=== PATIENT | female | born 1980 | race Caucasian/White ===

== ENCOUNTER 2019-01-03 10:01 | Inpatient (IN) | payer OTHER ==
[~2019-01-03] VITALS: Ht 147.3 cm; Wt 81.2 kg
[2019-01-03] MEDS ORDERED: IV D5/0.45 NACL 1,000 ML IV PRN (11:08)
--- NOTE | 2019-01-03 11:15 | NUR ---
MS DIVISION SALES MANAGER NOTES RECEIVED PT VIA [facility] WITH 2EMTS. PT DIRECT ADMIT FROM [facility]. PT IS A/O X4, TAGALOG SPEAKING AND CAN CONVERSE WITH [place] [employer]. PT AMBULATORY WITH STEADY GAIT, ABLE TO TRANSFER HERSELF FROM [facility] TO BED. PT ABLE TO PROVIDE MEDICAL HISTORY, NO MEDICATIONS CURRENTLY TAKING AT HOME. PT TOLERATING RA, WITH NO ACUTE RESPIRATORY DISTRESS NOTED. PT DENIES ANY PAIN OR DISCOMFORT AT THE TIME OF ADMISSION. PIV TO LFA G18, FLUSHED WITH NS, INTACT AND OPERATIONAL. ASSESSED SKIN, AND INTACT. PT KEPT COMFORTABLE. CALL LIGHT KEPT WITHIN REACH. MD/ MADE AWARE AND PLACED ADMISSION ORDERS. BED IN LOWEST, LOCKED POSITION WITH SRX3. WILL CONTINUE PLAN OF CARE.
[2019-01-03] MEDS ORDERED: ACETAMINOPHEN 325 MG TABLET PO PRN (11:30)
[2019-01-03] MEDS ORDERED: HYDROCODONE/APAP 5/325MG 1 EACH TABLET PO PRN (11:30)
[2019-01-03] MEDS ORDERED: ZOLPIDEM TARTRATE 5 MG TABLET PO PRN (11:30)
[2019-01-03] MEDS ORDERED: MAG HYDROX/AL HYDROX/SIMETH 30 ML UDC PO PRN (11:30)
[2019-01-03] MEDS ORDERED: MAGNESIUM HYDROXIDE 30 ML UDC PO PRN (11:30)
[2019-01-03] MEDS ORDERED: ONDANSETRON HCL/PF 4 MG/2 ML VIAL IVP PRN (11:30)
[2019-01-03] MEDS ORDERED: ZOSYN IVPB 3.375 G in IV D5W 50ml IV ONE (12:00)
[2019-01-03 12:08] LABS: ALBUMIN 3.1 g/dL (3.4-5.0); BILIRUBIN,TOTAL 0.6 mg/dL (0.2-1.0); MAGNESIUM 2.1 mg/dL (1.8-2.4); PHOSPHORUS 3.5 mg/dL (2.5-4.9); POTASSIUM 3.8 mmol/L (3.5-5.1); TOTAL PROTEIN, SERUM 7.2 g/dL (6.4-8.2)
[2019-01-03 12:10] LABS: BASOPHILS % (AUTO) 0.2 % (0.0-2.0); EOSINOPHILS % (AUTO) 0.2 % (0.0-6.0); HEMATOCRIT 41 % (33-45); HEMOGLOBIN 13.4 g/dL (11.5-14.8); LYMPHOCYTES # (AUTO) 1.1 /CMM (0.8-4.8); LYMPHOCYTES % (AUTO) 8.3 % (20.0-44.0); MEAN CORPUSCULAR HGB CONC 32 g/dl (31.0-36.0); MEAN CORPUSCULAR VOLUME 83 fL (82-100); MONOCYTES # (AUTO) 0.5 /CMM (0.1-1.30); MONOCYTES % (AUTO) 3.8 % (2.0-12.0); NEUTROPHILS # (AUTO) 12.1 /CMM (1.8-8.9); NEUTROPHILS % (AUTO) 87.5 % (43.0-81.0); PLATELET COUNT (AUTO) 371 /CMM (150-450); RED BLOOD CELL COUNT(AUTO) 4.95 MIL/uL (4.0-5.2); WHITE BLOOD COUNT (AUTO) 13.8 K/uL (4.3-11.0)
[2019-01-03 12:19] LABS: THYROID STIMULATING HORMONE 0.805 uIU/mL (0.358-3.74)
--- NOTE | 2019-01-03 14:30 | NUR ---
MS RN NOTES PT HAD US RESULTED NEGATIVE. MD/SA MADE AWARE, NO NEW ORDERS NOTED AT THIS TIME.
[2019-01-03 16:00] VITALS: BP 123/61
--- NOTE | 2019-01-03 17:00 | NUR ---
MS RN NOTES PT LEFT THE UNIT FOR NM HIDA SCAN VIA W/C.
[2019-01-03] MEDS: PIPERACILLIN /TAZOBACTAM 3.375 G in IV D5W 50 ML IV SCH ×2 (18:12→23:53)
--- NOTE | 2019-01-03 18:39 | NUR ---
MS RN CLOSING NOTES PT IS A/O X4, TAGALOG SPEAKING AND CAN CONVERSE WITH [place] [employer]. PT AMBULATORY WITH STEADY GAIT.PT TOLERATING RA, WITH NO ACUTE RESPIRATORY DISTRESS NOTED. PT DENIES ANY PAIN OR DISCOMFORT AT THE THIS TIME. IVF D51/2NS AT 75 ML/HR TO LFA G18, INTACT AND FLUID INFUSING WELL. ALL NEEDS AND CARE ATTENDED. PT KEPT COMFORTABLE. CALL LIGHT KEPT WITHIN REACH. BED IN LOWEST, LOCKED POSITION WITH SRX3. WILL ENDORSE TO INCOMING NIGHT NURSE FOR PENDING NM HIDA SCAN RESULT AND QUOC.
[2019-01-03 20:00] VITALS: BP 115/63
[2019-01-04] MEDS: PIPERACILLIN /TAZOBACTAM 3.375 G in IV D5W 50 ML IV SCH (05:06)
[2019-01-04 07:19] LABS: CALCIUM, SERUM 7.7 mg/dL (8.5-10.1); CREATININE 0.9 mg/dL (0.6-1.3); MAGNESIUM 2.3 mg/dL (1.8-2.4); PHOSPHORUS 2.7 mg/dL (2.5-4.9); POTASSIUM 3.4 mmol/L (3.5-5.1)
[2019-01-04 07:26] LABS: BASOPHILS % (AUTO) 0.4 % (0.0-2.0); EOSINOPHILS % (AUTO) 3.4 % (0.0-6.0); HEMATOCRIT 38 % (33-45); HEMOGLOBIN 12.4 g/dL (11.5-14.8); LYMPHOCYTES # (AUTO) 2.6 /CMM (0.8-4.8); LYMPHOCYTES % (AUTO) 31.2 % (20.0-44.0); MEAN CORPUSCULAR HGB CONC 33 g/dl (31.0-36.0); MEAN CORPUSCULAR VOLUME 83 fL (82-100); MONOCYTES # (AUTO) 0.7 /CMM (0.1-1.30); NEUTROPHILS # (AUTO) 4.6 /CMM (1.8-8.9); PLATELET COUNT (AUTO) 327 /CMM (150-450); WHITE BLOOD COUNT (AUTO) 8.2 K/uL (4.3-11.0)
[2019-01-04] MEDS ORDERED: PANTOPRAZOLE 40 MG TABLET.DR PO SCH (07:30)
--- NOTE | 2019-01-04 07:30 | NUR ---
RN MS NOTE RECEIVED REPORT AT BEDSIDE. PATIENT SLEEPING COMFORTABLY. NO SIGN OF RESPIRATORY DISTRESS OR SOB NOTED. IV L FZ#18 D5 1/2 NS RUNNING AT 75 ML/HR. BED LOCKED AND LOW, SIDE RIALS UP X2, CALL LIGHT WITHIN REACH. WILL CON TO MONITOR.
[2019-01-04] MEDS ORDERED: POTASSIUM CHLORIDE 20 MEQ POWDER PACKET PO SCH (10:30)
--- NOTE | 2019-01-04 11:32 | NUR ---
PATIENT TO BE DISCHARGED BUT SHE DOSE NOT HAVE ANY SHIRT B/C SHE [facility] WITH [facility]. CALLED [employer] TO GET A SHIRT FOR HER.
[2019-01-04] MEDS ORDERED: PIPERACILLIN /TAZOBACTAM 3.375 G in IV D5W 100 ML IV SCH (13:00)
--- NOTE | 2019-01-04 13:36 | NUR ---
PT GOT DISCHARGED TO HOME. STABLE, ALL NEEDS ATTENDED, ALL MEDS GIVEN. WALKED OUT WITH HER SISTER BERTIN.
== END 2019-01-04 14:24 | disposition home or self-care (01) ==
LOC: MEDSG1 10:01
DX: K81.0 Acute cholecystitis (principal); E66.01 Morbid (severe) obesity due to excess calories; K76.0 Fatty (change of) liver, not elsewhere classified; E88.09 Other disorders of plasma-protein metabolism, not elsewhere classified; E83.51 Hypocalcemia; Z68.37 Body mass index [BMI] 37.0-37.9, adult; Z98.891 History of uterine scar from previous surgery; D72.829 Elevated white blood cell count, unspecified
CPT/HCPCS: 36415; 76705-TC; 78226; 80048-TC; 80053-TC; 80061-TC; 83735-TC; 84100-TC; 84443-TC; 85025-TC; 87081-TC; A9537; G0378; J2543; J3490; J7060